=== PATIENT | male | born 1970 | race Caucasian/White ===

== ENCOUNTER 2018-04-05 11:49 | Observation (INO) | payer OTHER ==
[2018-04-05] MEDS ORDERED: SODIUM CHLORIDE 0.9% 500 ML 500 ML IV STA (12:06)
[2018-04-05] MEDS ORDERED: SODIUM CHLORIDE 0.9% 1,000 ML IV STA (12:06)
[2018-04-05] MEDS ORDERED: METOCLOPRAMIDE 5 MG/ML 2 ML VIAL IVP STA (12:08)
[2018-04-05] MEDS ORDERED: LORazepam 2 MG/ML INJ IV STA (12:08)
--- NOTE | 2018-04-05 12:13 | ED ---
General Adult HPI - General Chief complaint: Dizziness Stated complaint: Lightheadedness Time Seen by Provider: 04/05/18 11:52 Source: patient, RN notes reviewed Mode of arrival: wheelchair Limitations: no limitations - History of Present Illness Initial comments: Patient is a pleasant 47-year-old male presenting to the emergency department after being seen by primary care physician. Patient went to see his doctor for routine appointment. In route there patient suddenly became very dizzy. Dizziness is described as lightheadedness. Patient states if symptoms worsen he feels like he could pass out. No history of similar symptoms previously. Symptoms are moderate increase with movement. Closing his eyes make symptoms worse. Patient denies spinning type sensation. No chest pain or dyspnea. No confusion. No weakness. No speech problems. Dr. Ambrose did see the patient and called with report here. He was concerned regarding hypertension and tachycardia and wanted patient seen urgently. - Related Data Home Medications Medication Instructions Recorded Confirmed Ibuprofen 800 mg PO Q12H PRN 04/05/18 04/05/18 Omeprazole [PriLOSEC] 20 mg PO DAILY 04/05/18 04/05/18 amLODIPine BESYLATE 5 mg PO DAILY 04/05/18 04/05/18 Allergies Allergy/AdvReac Type Severity Reaction Status Date / Time No Known Allergies Allergy Verified 04/05/18 12:23 Review of Systems ROS Statement: Those systems with pertinent positive or pertinent negative responses have been documented in the HPI. ROS Other: All systems not noted in ROS Statement are negative. Constitutional: Denies: fever Eyes: Denies: eye pain ENT: Denies: ear pain Respiratory: Denies: cough Cardiovascular: Denies: chest pain, palpitations Endocrine: Denies: fatigue Gastrointestinal: Denies: abdominal pain, nausea, vomiting Genitourinary: Denies: dysuria Musculoskeletal: Denies: back pain Skin: Denies: rash Neurological: Denies: headache, weakness, confusion Past Medical History Past Medical History: No Reported History History of Any Multi-Drug Resistant Organisms: None Reported Past Surgical History: Orthopedic Surgery Past Psychological History: No Psychological Hx Reported Smoking Status: Current every day smoker Past Alcohol Use History: Daily Past Drug Use History: None Reported General Exam Limitations: no limitations General appearance: alert, in no apparent distress Head exam: Present: atraumatic Eye exam: Present: normal appearance, PERRL, EOMI. Absent: nystagmus ENT exam: Present: normal oropharynx Neck exam: Present: normal inspection Respiratory exam: Present: normal lung sounds bilaterally Cardiovascular Exam: Present: tachycardia Expanded Peripheral pulses: 2+: Radial (R), Radial (L), Dorsalis Pedis (R), Dorsalis Pedis (L) GI/Abdominal exam: Present: soft. Absent: distended, tenderness, guarding Extremities exam: Present: normal inspection. Absent: pedal edema, calf tenderness Neurological exam: Present: alert, oriented X3, CN II-XII intact. Absent: motor sensory deficit Expanded Neurological exam: Present: protecting the airway Patient oriented to: Present: person, place, time Speech: Present: fluid speech Cranial nerves: EOM's Intact: Normal, Facial Sensation: Normal Cerebellar function: Finger to Nose: Normal Sensory exam: Upper Extremity Light Touch: Normal, Lower Extremity Light Touch: Normal Motor strength exam: RUE: 5, LUE: 5, RLE: 5, LLE: 5 Eye Response: (4) open spontaneously Motor Response: (6) obeys commands Verbal Response: (5) oriented Psychiatric exam: Present: normal affect, normal mood Skin exam: Present: normal color Course Vital Signs 04/05/18 04/05/18 04/05/18 11:55 12:19 12:37 Temperature 98.7 F Pulse Rate 110 H 98 93 Respiratory 20 18 18 Rate Blood Pressure 217/107 201/128 201/128 O2 Sat by Pulse 99 96 95 Oximetry 04/05/18 04/05/18 04/05/18 12:45 13:22 13:30 Temperature Pulse Rate 85 84 83 Respiratory 18 18 17 Rate Blood Pressure 155/98 158/101 162/102 O2 Sat by Pulse 93 L 96 96 Oximetry 04/05/18 04/05/18 14:00 14:30 Temperature Pulse Rate 87 89 Respiratory 14 15 Rate Blood Pressure 148/102 168/101 O2 Sat by Pulse 93 L 95 Oximetry EKG Findings - EKG Comments: EKG Findings:: Sinus tachycardia 103. MS 140. QRS 82. QT 340. QTc 445. Left axis. Normal QRS. No acute ST change. Medical Decision Making - Medical Decision Making Call received from Dr. Ambrose. Case was discussed in detail with him and he would like patient admitted. Patient was reevaluated and resting comfortably in bed. Dizziness has resolved. Heart rate 87. Blood pressure 150/99. Patient and family are updated on results and plan. - Lab Data Result diagrams: 04/05/18 12:05 04/05/18 12:05 Lab Results 04/05/18 04/05/18 04/05/18 Range/Units 12:05 12:05 12:05 WBC 9.1 (3.8-10.6) k/uL RBC 5.39 (4.30-5.90) m/uL Hgb 17.2 (13.0-17.5) gm/dL Hct 49.6 (39.0-53.0) % MCV 92.1 (80.0-100.0) fL MCH 31.9 (25.0-35.0) pg MCHC 34.7 (31.0-37.0) g/dL RDW 13.4 (11.5-15.5) % Plt Count 266 (150-450) k/uL Neutrophils % 67 % Lymphocytes % 19 % Monocytes % 7 % Eosinophils % 3 % Basophils % 1 % Neutrophils # 6.0 (1.3-7.7) k/uL Lymphocytes # 1.8 (1.0-4.8) k/uL Monocytes # 0.7 (0-1.0) k/uL Eosinophils # 0.3 (0-0.7) k/uL Basophils # 0.1 (0-0.2) k/uL PT (9.0-12.0) sec INR (<1.2) APTT (22.0-30.0) sec D-Dimer (<0.60) mg/L FEU Sodium 137 (137-145) mmol/L Potassium 4.5 (3.5-5.1) mmol/L Chloride 104 (98-107) mmol/L Carbon Dioxide 24 (22-30) mmol/L Anion Gap 9 mmol/L BUN 14 (9-20) mg/dL Creatinine 0.79 (0.66-1.25) mg/dL Est GFR (CKD-EPI)AfAm >90 (>60 ml/min/1.73 sqM) Est GFR (CKD-EPI)NonAf >90 (>60 ml/min/1.73 sqM) Glucose 117 H (74-99) mg/dL Calcium 9.6 (8.4-10.2) mg/dL Magnesium 1.7 (1.6-2.3) mg/dL Total Bilirubin 0.8 (0.2-1.3) mg/dL AST 43 (17-59) U/L ALT 43 (21-72) U/L Alkaline Phosphatase 80 (38-126) U/L Total Creatine Kinase 102 (55-170) U/L CK-MB (CK-2) 0.6 (0.0-2.4) ng/mL CK-MB (CK-2) Rel Index 0.6 Troponin I <0.012 (0.000-0.034) ng/mL Total Protein 7.4 (6.3-8.2) g/dL Albumin 4.7 (3.5-5.0) g/dL TSH 1.860 (0.465-4.680) mIU/L Free T4 0.81 (0.78-2.19) ng/dL Free T3 pg/mL 3.2 (2.8-5.3) pg/ml Urine Color Urine Appearance (Clear) Urine pH (5.0-8.0) Ur Specific [place] (1.001-1.035) Urine Protein (Negative) Urine Glucose (UA) (Negative) Urine Ketones (Negative) Urine Blood (Negative) Urine Nitrite (Negative) Urine Bilirubin (Negative) Urine Urobilinogen (<2.0) mg/dL Ur Leukocyte Esterase (Negative) 04/05/18 04/05/18 Range/Units 12:05 14:30 WBC (3.8-10.6) k/uL RBC (4.30-5.90) m/uL Hgb (13.0-17.5) gm/dL Hct (39.0-53.0) % MCV (80.0-100.0) fL MCH (25.0-35.0) pg MCHC (31.0-37.0) g/dL RDW (11.5-15.5) % Plt Count (150-450) k/uL Neutrophils % % Lymphocytes % % Monocytes % % Eosinophils % % Basophils % % Neutrophils # (1.3-7.7) k/uL Lymphocytes # (1.0-4.8) k/uL Monocytes # (0-1.0) k/uL Eosinophils # (0-0.7) k/uL Basophils # (0-0.2) k/uL PT 10.2 (9.0-12.0) sec INR 0.9 (<1.2) APTT 22.9 (22.0-30.0) sec D-Dimer 0.21 (<0.60) mg/L FEU Sodium (137-145) mmol/L Potassium (3.5-5.1) mmol/L Chloride (98-107) mmol/L Carbon Dioxide (22-30) mmol/L Anion Gap mmol/L BUN (9-20) mg/dL Creatinine (0.66-1.25) mg/dL Est GFR (CKD-EPI)AfAm (>60 ml/min/1.73 sqM) Est GFR (CKD-EPI)NonAf (>60 ml/min/1.73 sqM) Glucose (74-99) mg/dL Calcium (8.4-10.2) mg/dL Magnesium (1.6-2.3) mg/dL Total Bilirubin (0.2-1.3) mg/dL AST (17-59) U/L ALT (21-72) U/L Alkaline Phosphatase (38-126) U/L Total Creatine Kinase (55-170) U/L CK-MB (CK-2) (0.0-2.4) ng/mL CK-MB (CK-2) Rel Index Troponin I (0.000-0.034) ng/mL Total Protein (6.3-8.2) g/dL Albumin (3.5-5.0) g/dL TSH (0.465-4.680) mIU/L Free T4 (0.78-2.19) ng/dL Free T3 pg/mL (2.8-5.3) pg/ml Urine Color Yellow Urine Appearance Clear (Clear) Urine pH 6.5 (5.0-8.0) Ur Specific [place] 1.009 (1.001-1.035) Urine Protein Negative (Negative) Urine Glucose (UA) Negative (Negative) Urine Ketones Negative (Negative) Urine Blood Negative (Negative) Urine Nitrite Negative (Negative) Urine Bilirubin Negative (Negative) Urine Urobilinogen <2.0 (<2.0) mg/dL Ur Leukocyte Esterase Negative (Negative) - Radiology Data Radiology results: report reviewed (Computed tomography scan of the brain shows no acute process. Sinusitis. Atrophy.), image reviewed (Chest x-ray shows no acute process) Critical Care Time Critical Care Time: Yes Total Critical Care Time: 32 Disposition Clinical Impression: Hypertensive urgency, Dizziness Disposition: ADMITTED IP TO THIS HOSP Instructions: Dizziness (ED) Referrals: Bennie Ambrose MD [Primary Care Provider] - 1-2 days Decision Time: 15:17
[2018-04-05] MEDS ORDERED: LABETALOL SYRINGE 5 MG/ML IVP STA (12:24)
[2018-04-05 12:35] LABS: Basophils # (A) 0.1 k/uL (0-0.2); Basophils % (A) 1 %; Eosinophils # (A) 0.3 k/uL (0-0.7); Eosinophils % (A) 3 %; HCT 49.6 % (39.0-53.0); HGB 17.2 gm/dL (13.0-17.5); Lymphocytes # (A) 1.8 k/uL (1.0-4.8); Lymphocytes % (A) 19 %; MCH 31.9 pg (25.0-35.0); MCHC 34.7 g/dL (31.0-37.0); MCV 92.1 fL (80.0-100.0); Mean Platelet Volume 7.2; Monocytes # (A) 0.7 k/uL (0-1.0); Monocytes % (A) 7 %; Neutrophils % (A) 67 %; Platelet Count 266 k/uL (150-450); RBC 5.39 m/uL (4.30-5.90); RDW 13.4 % (11.5-15.5); WBC 9.1 k/uL (3.8-10.6)
[2018-04-05 12:46] LABS: ALT 43 U/L (21-72); AST 43 U/L (17-59); Albumin 4.7 g/dL (3.5-5.0); Alkaline Phosphatase 80 U/L (38-126); Anion Gap 9 mmol/L; Blood Urea Nitrogen 14 mg/dL (9-20); Calcium 9.6 mg/dL (8.4-10.2); Carbon Dioxide 24 mmol/L (22-30); Chloride 104 mmol/L (98-107); Glucose 117 mg/dL (74-99); Magnesium 1.7 mg/dL (1.6-2.3); Potassium 4.5 mmol/L (3.5-5.1); Sodium 137 mmol/L (137-145); Total Bilirubin 0.8 mg/dL (0.2-1.3); Total Protein 7.4 g/dL (6.3-8.2)
[2018-04-05 13:01] LABS: T4, Free (Free Thyroxine) 0.81 ng/dL (0.78-2.19)
[2018-04-05 13:04] LABS: Creatine Kinase 102 U/L (55-170)
[2018-04-05 13:16] LABS: Creatine Kinase MB 0.6 ng/mL (0.0-2.4); Troponin I <0.012 ng/mL (0.000-0.034)
--- NOTE | 2018-04-05 13:19 | XR ---
EXAMINATION TYPE: XR chest 2V DATE OF EXAM: 04/05/2018 COMPARISON: NONE HISTORY: Dysrhythmia. TECHNIQUE: Frontal and lateral views of the chest are obtained. FINDINGS: Overlying EKG leads are seen. There is no focal air space opacity, pleural effusion, or pne umothorax seen. The cardiac silhouette size is within normal limits. The osseous structures are in tact. IMPRESSION: No acute cardiopulmonary process.
--- NOTE | 2018-04-05 13:26 | CT ---
EXAMINATION TYPE: CT brain wo con DATE OF EXAM: 04/05/2018 COMPARISON: NONE HISTORY: Vertigo CT DLP: 1187.4 mGycm. Automated Exposure Control for Dose Reduction was Utilized. TECHNIQUE: CT scan of the head is performed without contrast. FINDINGS: There is no acute intracranial hemorrhage or midline shift identified. There is diffuse v entricular and sulcal prominence consistent with diffuse age-related cerebral atrophy. Barragan-white ma tter interface is preserved. No suspicious extra-axial fluid collection is seen. The globes are inta ct. There is mild mucosal thickening of the right maxillary sinus with an air-fluid level, moderate m ucosal thickening of the ethmoid sinuses, and moderate mucosal thickening of the frontal sinus with s cant mucosal thickening of the sphenoid sinus. Mastoid air cells appear well aerated. Calvarium appea rs intact. There is mild leftward nasal septal deviation. IMPRESSION: 1. No acute intracranial hemorrhage or midline shift. 2. Overall moderate pansinusitis. 3. Mild diffuse age-related cerebral atrophy.
[2018-04-05 13:34] LABS: D-Dimer 0.21 mg/L FEU (<0.60); INR 0.9 (<1.2); Partial Thromboplastin Time 22.9 sec (22.0-30.0); Prothrombin Time 10.2 sec (9.0-12.0)
[2018-04-05 15:08] LABS: Appearance,Urine Clear (Clear); Bilirubin,Urine Negative (Negative); Blood,Urine Negative (Negative); Color,Urine Yellow; Glucose,Urine (UA) Negative (Negative); Ketones,Urine Negative (Negative); Leukocyte Esterase,Urine Negative (Negative); Nitrite,Urine Negative (Negative); PH, Urine 6.5 (5.0-8.0); Protein,Urine Negative (Negative); Specific Gravity,Urine 1.009 (1.001-1.035); Urobilinogen,Urine <2.0 mg/dL (<2.0)
[2018-04-05] MEDS ORDERED: ENALAPRILAT 1.25 MG/ML 1 ML VIAL IVP PRN (15:16)
[2018-04-05] MEDS ORDERED: ENALAPRILAT 1.25 MG/ML 1 ML VIAL IVP STA (15:16)
[2018-04-05] MEDS ORDERED: LORazepam 2 MG/ML INJ IV PRN (15:18)
[2018-04-05] MEDS ORDERED: NALOXONE 0.4 MG/ML 1 ML VIAL IV PRN (15:18)
[2018-04-05 15:19] LABS: Amphetamine Screen,Urine Not Detected (NotDetected); Barbiturate Screen,Urine Not Detected (NotDetected); Benzodiazepines Screen,Urine Not Detected (NotDetected); Cocaine Screen,Urine Not Detected (NotDetected); Methadone Screen, Urine Not Detected (NotDetected); Opiate Screen,Urine Not Detected (NotDetected); Oxycodone Screen, Urine Not Detected (NotDetected); Phencyclidine Screen,Urine Not Detected (NotDetected); Tricyclic Antidepressant,Urine Not Detected (NotDetected); Urn Cannabinoid Scrn Not Detected (NotDetected)
[2018-04-05] MEDS ORDERED: amLODIPine 5 MG TAB PO SCH (15:30)
[2018-04-05] MEDS: SODIUM CHLORIDE 0.9% 1,000 ML IV SCH ×2 (17:13→17:14)
[2018-04-05 17:22] VITALS: BMI 30.7
[2018-04-05] MEDS ORDERED: NICOTINE 21MG/24HR PATCH TRANSDERM STA (18:55)
--- NOTE | 2018-04-05 22:56 | CONS ---
CONSULTATION DATE OF SERVICE: 04/05/2018. CHIEF COMPLAINT: Severe uncontrolled hypertension. HISTORY: A 47-year-old gentleman with history of hypertension, comes to the hospital with symptoms of not feeling well, fatigue and tiredness. He was at the physician's office today, was found to have severe elevated blood pressures and brought in. He is being treated with Norvasc and enalapril, and his blood pressures are much improved. PAST MEDICAL HISTORY: Significant for hypertension. MEDICATIONS: Include amlodipine 5 mg daily, Prilosec, and ibuprofen. ALLERGIES: No known drug allergies. FAMILY HISTORY: Significant for coronary artery disease. SOCIAL HISTORY: Significant for smoking and EtOH. REVIEW OF SYSTEMS: HEENT is unremarkable. Cardiac as described above. Respiratory negative. GI negative. Gu negative. Allergy and musculoskeletal negative. Endocrine negative. Constitutional negative. Oncological negative. EXAM: Comfortable at rest. Heart rate is 89 beats per minute, blood pressure is 146/90, respiratory rate 18. There is no jugular venous distention. Chest exam reveals good air entry bilaterally. Heart exam reveals first and second heart sounds. S4 is heard. Abdomen is soft. Exam of extremities did not reveal any edema. Peripheral pulses are palpable. ASSESSMENT: 1. Severe uncontrolled hypertension. PLAN: Will treat the patient with Norvasc. Obtain a 2D echo in the morning. MMODL / IJN: [id number] /
[2018-04-06 07:42] VITALS: RESP 18; TEMP 97.7
[2018-04-06] MEDS ORDERED: LOSARTAN-HCTZ 50-12.5 MG 1 EACH TAB PO SCH (09:00)
[2018-04-06] MEDS ORDERED: amLODIPine 10 MG TAB PO SCH (09:00)
[2018-04-06] MEDS ORDERED: METOPROLOL TARTRATE 25 MG TAB PO SCH (09:00)
--- NOTE | 2018-04-06 10:10 | P.PN ---
Subjective This is a pleasant 47-year-old male past medical history significant for hypertension. He presented to the hospital with hypertensive emergency blood pressure was 217/107 and 201/128. He was treated with IV enalapril, IV labetalol and an additional dose of amlodipine was given. Blood pressure this morning 146/92 heart rate 82 afebrile maintaining oxygen saturation on room air. HEENT denies symptoms of chest discomfort, shortness of breath, dizziness or palpitations. He also admits to daily use of alcohol in the form of beer 5- 6 cans per day as well as a heavy smoking history. GENERAL: Well-appearing, well-nourished and in no acute distress. NECK: Supple without JVD or thyromegaly. LUNGS: Breath sounds clear to auscultation bilaterally. Respiration equal and unlabored. No wheezes, rales or rhonchi. HEART: Regular rate and rhythm without murmurs, rubs or gallops. S1 and S2 heard. EXTREMITIES: Normal range of motion, no edema. No clubbing or cyanosis. Peripheral pulses intact. ASSESSMENT Hypertension, uncontrolled Chronic nicotine dependence Daily alcohol abuse PLAN Echocardiogram has been ordered and will be reviewed. Initiate on Lopressor 25 mg daily and losartan, HCTZ 50/12.5 mg daily. Recommend greatly decreasing his daily alcohol intake as well as smoking cessation. Give these additional medications now and increase activity and ambulation in the cam. If the patient tolerates these new medications he is stable for discharge from a cardiac perspective. He has been advised to keep a daily blood pressure internal to bring with him to his follow-up appointment with Dr. Del Rio in 2 weeks. Nurse Practitioner note has been reviewed, I agree with a documented findings and plan of care. Patient was seen and examined. Objective - Vital Signs Vital signs: Vital Signs Temp 97.7 F 04/06/18 07:15 Pulse 82 04/06/18 08:00 Resp 18 04/06/18 08:00 BP 146/92 04/06/18 07:15 Pulse Ox 98 04/06/18 07:15 Intake & Output 04/05/18 04/06/18 04/06/18 18:59 06:59 18:59 Weight 99.79 kg 93.2 kg Other: Voiding Method Toilet # Voids 2 - Labs CBC & Chem 7: 04/05/18 12:05 04/05/18 12:05 Labs: Abnormal Lab Results - Last 24 Hours (Table) 04/05/18 Range/Units 12:05 Glucose 117 H (74-99) mg/dL
[2018-04-06 12:03] VITALS: BP 150/87; PULSE 76
--- NOTE | 2018-04-07 09:11 | ECHOF ---
Referral Reason:high blood pressure MEASUREMENTS -------- HEIGHT: 162.6 cm WEIGHT: 95.3 kg BP: IVSd: 1.4 cm (0.6 - 1.1) LVIDd: 4.1 cm (3.9 - 5.3) LVPWd: 1.4 cm (0.6 - 1.1) IVSs: 1.4 cm LVIDs: 3.9 cm LVPWs: 0.6 cm LAESV Index (A-L): 29.05 ml/m Ao Diam: 3.1 cm (2.0 - 3.7) AV Cusp: 1.3 cm (1.5 - 2.6) LA Diam: 4.2 cm (2.7 - 3.8) MV EXCURSION: 13.883 mm (> 18.000) MV EF SLOPE: 84 mm/s (70 - 150) EPSS: 0.8 cm MV E Girma: 0.75 m/s MV DecT: 159 ms MV A Girma: 0.72 m/s MV E/A Ratio: 1.04 RAP: 5.00 mmHg RVSP: 14.92 mmHg FINDINGS -------- Sinus rhythm. This was a technically adequate study. The left ventricular size is normal. There is mild concentric left ventricular hypertrophy. Overa ll left ventricular systolic function is normal with, an EF between 55 - 60 %. The right ventricle is normal in size. The left atrial size is normal. The right atrial size is normal. There is mild aortic valve sclerosis. There is no evidence of aortic regurgitation. Mild mitral annular calcification present. Mild mitral regurgitation is present. Mild tricuspid regurgitation present. There is no evidence of pulmonary hypertension. The right v entricular systolic pressure, as measured by Doppler, is 14.92mmHg. There is no pulmonic regurgitation present. The aortic root size is normal. There is no pericardial effusion. CONCLUSIONS -------- 1. The left ventricular size is normal. 2. There is mild concentric left ventricular hypertrophy. 3. Overall left ventricular systolic function is normal with, an EF between 55 - 60 %. 4. The right ventricle is normal in size. 5. The left atrial size is normal. 6. The right atrial size is normal. 7. There is mild aortic valve sclerosis. 8. Mild mitral annular calcification present. 9. Mild mitral regurgitation is present. 10. Mild tricuspid regurgitation present. 11. There is no evidence of pulmonary hypertension. 12. The right ventricular systolic pressure, as measured by Doppler, is 14.92mmHg. 13. There is no pulmonic regurgitation present. 14. The aortic root size is normal. 15. There is no pericardial effusion. DATA STEWARD: Geraldine Dela Cruz RDCS
== END 2018-04-06 14:28 | disposition home or self-care (01) ==
LOC: EC 11:49 → 3SCARD 15:18 → 1SOBS 18:51
PROVIDERS: ADMIT Family Medicine; ATTEND Family Medicine
DX: I10 Essential (primary) hypertension (principal); F17.200 Nicotine dependence, unspecified, uncomplicated; F10.10 Alcohol abuse, uncomplicated; Z79.899 Other long term (current) drug therapy
CPT/HCPCS: 96361 ×2; 96374; 96375; 99285; 36415; 93306; 85379; 84439; 84481; 80053; 82550; 82553; 83735; 84443; 84484; 85025; 85610; 85730; 81003; 80306; 71046; 70450; G0378 ×3; S4990; J2060; J2765

== ENCOUNTER 2019-09-12 12:27 | Emergency (ER) | payer OTHER ==
[2019-09-12 12:32] VITALS: RESP 18
[2019-09-12] MEDS ORDERED: SODIUM CHLORIDE 0.9% 1,000 ML IV STA (13:18)
[2019-09-12] MEDS ORDERED: KETOROLAC 30 MG/ML 1 ML VIAL IVP STA (13:18)
[2019-09-12] MEDS ORDERED: fentaNYL (PF) 50 MCG/ML 2 ML AMP IVP STA (13:18)
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
[2019-09-12] MEDS ORDERED: LIDOCAINE 5% PATCH TOPICAL STA (13:36)
[2019-09-12 16:06] VITALS: BP 131/85; PULSE 86; TEMP 98.5
== END 2019-09-12 16:10 | disposition home or self-care (01) ==
LOC: EC 12:27
DX: M54.31 Sciatica, right side (principal); F17.200 Nicotine dependence, unspecified, uncomplicated; I10 Essential (primary) hypertension; Z79.899 Other long term (current) drug therapy
CPT/HCPCS: 99283; 96374; 96375; 96361; J3010; J1885